=== PATIENT | female | born 1990 | race African-American/Black ===

== ENCOUNTER 2024-04-15 13:14 | Emergency (ER) | payer BC ==
[~2024-04-15] VITALS: Ht 162.6 cm; Wt 84.8 kg
[2024-04-15] MEDS ORDERED: IOPAMIDOL 370 MG/ML 100 ML INFUS..BTL INJ ONE (14:08)
[2024-04-15] MEDS: FAMOTIDINE 20 MG/2 ML VIAL IV STA (14:31)
[2024-04-15] MEDS: SODIUM CHLORIDE 0.9% 1000ML 1,000 ML IV ONE (14:31)
[2024-04-15] MEDS ORDERED: CYCLOBENZAPRINE5 MG PO (15:02)
[2024-04-15] MEDS ORDERED: PEPCID AC10 MG PO (15:03)
[2024-04-15 15:16] VITALS: PULSE 64; RESP 17; TEMP 97.6
[2024-04-15 15:39] VITALS: BP 140/74; PULSE 74; RESP 18; O2SAT 98
== END 2024-04-15 15:30 | disposition home or self-care (01) ==
LOC: FSED 13:17
DX: R07.9 Chest pain, unspecified (principal); D64.9 Anemia, unspecified; K21.9 Gastro-esophageal reflux disease without esophagitis; Z79.899 Other long term (current) drug therapy
CPT/HCPCS: 71275; 80053; 80307; 81003; 81025; 84484; 85025; 85379; 93005; 99284; J7030; Q9967